=== PATIENT | female | born 1955 | race Caucasian/White ===

== ENCOUNTER → 2025-05-22 | Outpatient (CLI) | payer MEDICARE, OTHER, SELFPAY ==
--- NOTE | 2025-05-22 14:49 | RAD_ITS ---
PROCEDURE: PELVIS 1 OR 2 VIEWS 05/22/2025 REASON FOR EXAM: PAIN TECHNIQUE: Procedure Code: RADPEL Modality: DX Procedure: AP PELVIS 2 VIEWS COMPARISON: None. RAD/Pelvis 1 or 2 Views IMPRESSION: Prominent degenerative changes are seen of the visualized lower lumbar spine, a long with levoscoliosis. Minimal sacroiliac joint degenerative changes are seen. The left hip joint demonstrates mild degenerative changes, without associated j oint narrowing. Moderate right hip degenerative changes are seen, with associated moderate join t space narrowing, most prominent superiorly. No evidence of femoral head osteonecrosis. No acute fracture or dislocation is seen. Reading Location: [place] [id number]
--- NOTE | 2025-05-22 14:49 | RAD_ITS ---
PROCEDURE: KNEE 4 OR MORE VIEWS 05/22/2025 REASON FOR EXAM: PAIN TECHNIQUE: Procedure Code: RADKN Modality: DX Procedure: KNEE 4 OR MORE VIEWS Laterality: Left COMPARISON: None FINDINGS: Multiple images of the left knee demonstrate no evidence of fracture or dislocation. There is mild arthritis of the patellofemoral joint. There is mild lateral displacement of the patella. There is no significant arthritis of the medial joint space compartment of the knee. There is no significant arthritis of the lateral joint space compartment of the knee. There is no knee joint effusion. The periarticular soft tissues are normal. RAD/Knee 4 or More Views IMPRESSION: Mild arthritis of the patellofemoral joint. Mild lateral displacement of the p atella. Reading Location: [place] [id number]
--- NOTE | 2025-05-22 14:50 | RAD_ITS ---
PROCEDURE: KNEE 4 OR MORE VIEWS 05/22/2025 REASON FOR EXAM: PAIN TECHNIQUE: Procedure Code: RADKN Modality: DX Procedure: KNEE 4 OR MORE VIEWS Laterality: Right COMPARISON: None FINDINGS: Multiple images of the right knee demonstrate no evidence of fracture or dislocation. There is mild arthritis of the patellofemoral joint. There is no significant arthritis of the medial joint space compartment of the knee. There is no significant arthritis of the lateral joint space compartment of the knee. There is no knee joint effusion. The periarticular soft tissues are normal. RAD/Knee 4 or More Views IMPRESSION: Mild arthritis of the right patellofemoral joint. Reading Location: [place] [id number]
[2025-05-22 17:52] LABS: Hematocrit 42.5 % (37-47); Hemoglobin 13.5 g/dL (12.0-15.0); Immature Granulocytes Count 0.030 X10^3/uL (0.0-0.0); Mean Corp Hgb Conc 31.8 g/dL (32-36); Mean Corpuscular Volume 89.7 fL (81-99); Mean Platelet Vol. 9.2 fl (6.2-12.0); NRBC Flagged by Analyzer 0 % (0-5); Platelet Count 329 K/mm3 (150-450); RBC Distribution Width CV 13.9 % (11.6-14.6); RBC Distribution Width SD 45.8 fl (35.1-43.9); Red Blood Count 4.74 M/mm3 (4.2-5.4); White Blood Count 8.7 K/mm3 (4.4-11.0)
[2025-05-22 18:26] LABS: Hepatitis B Surface Antigen Nonreactive (Nonreactive); Hepatitis C Antibody Nonreactive (Nonreactive)
[2025-05-22 18:41] LABS: AST(SGOT) 14 U/L (<=31); Alanine Aminotransfer ALT/SGPT 10 U/L (<=34); Albumin, Serum 4.3 g/dL (3.4-4.8); Alkaline Phosphatase 65 U/L (35-104); Anion Gap 14 (5-15); BUN 8 mg/dL (4-19); BUN/Creat Ratio 10.4 RATIO (10-20); Calcium,Total 9.4 mg/dL (7.6-11.0); Carbon Dioxide 22.8 mmol/L (21.0-32.0); Chloride 105 mmol/L (98-108); Globulin 2.4 g/dL (2.2-4.2); Glucose 100 mg/dL (70-99); Potassium 3.7 mmol/L (3.3-5.1)
[2025-05-22 18:42] LABS: CRP 3.47 mg/L (0.0-3.0)
== END | disposition home or self-care (01) ==
LOC: MTLAB 14:48
PROVIDERS: Referring Provider Internal Medicine Rheumatology; Visit Provider Internal Medicine Rheumatology
DX: M50.30 Other cervical disc degeneration, unspecified cervical region (principal); M05.79 Rheumatoid arthritis with rheumatoid factor of multiple sites without organ or systems involvement; Z79.899 Other long term (current) drug therapy; M47.892 Other spondylosis, cervical region; M48.061 Spinal stenosis, lumbar region without neurogenic claudication; M17.0 Bilateral primary osteoarthritis of knee
CPT/HCPCS: 36415; 72170; 73564; 80053; 85025; 85652; 86140; 86200; 86431; 86706; 86803; 87340